=== PATIENT | female | born 1960 | race Caucasian/White ===

== ENCOUNTER 2016-09-24 10:11 | Emergency (ER) | payer MEDICARE, OTHER ==
[~2016-09-24] VITALS: Ht 162.6 cm; Wt 83.9 kg
[~2016-09-24 10:11] MED LIST: ADVAIR DISKUS 21 DSK IH; AMLODIPINE10 M1 PO; COZAAR25 MG PO; LISINOPRIL10 M1 PO; NORCO 10/325 MG1 TAB PO; PAXIL10 MG PO; PAXIL40 MG PO; VICODIN 5/500 M1 TAB PO
[2016-09-24 10:12] VITALS: BP 122/76
[2016-09-24] MEDS ORDERED: CYMBALTA60 MG PO (10:21)
--- NOTE | 2016-09-24 10:24 | NUR ---
Patient taken to bed 5.
--- NOTE | 2016-09-24 10:27 | NUR ---
Dr. Greco evaluating patient at bedside.
--- NOTE | 2016-09-24 10:35 | NUR ---
56/F presents to ED for evaluation of right sided head pain s/p fall from a chair x1 week ago. Pt states she went to sit on uneven chair and fell backwards. Denies loss of conciousness. Pt complains of right sided head pain, right neck and right shoulder pain, 10/10, pressure, constant. Patient states she went to see a doctor at an urgent care and was given Tylenol #3 with no improvement. Pt also complains of dizzness and vomiting this morning. Patient is AOX4, ambulatory with steady gait. VSS at this time. No visible signs of distress noted. Pt placed in position of comfort, bed in it's lowest position.
[2016-09-24] MEDS ORDERED: ONDANSETRON 4 MG/2 ML VIAL IVP ONE (10:40)
[2016-09-24] MEDS ORDERED: KETOROLAC 30 MG/ML VIAL IVP ONE (10:40)
[2016-09-24] MEDS ORDERED: NACL 0.9% 1,000 ML IV ONE (10:40)
--- NOTE | 2016-09-24 10:55 | NUR ---
Patient taken to CT via w/c accompanied by mechatronics technologistdarío Stearns.
--- NOTE | 2016-09-24 11:07 | NUR ---
Pt returned from CT and placed back into bed 5.
--- NOTE | 2016-09-24 11:13 | NUR ---
Patient provided with warm blanket and placed in position of comfort.
[2016-09-24] MEDS ORDERED: fentaNYL 0.05 MG/ML VIAL IVP ONE (11:35)
--- NOTE | 2016-09-24 11:36 | NUR ---
Pt continues to c/o 04/[address] Greco made aware.
--- NOTE | 2016-09-24 11:50 | NUR ---
Pt's boyfriend at bedside.
--- NOTE | 2016-09-24 12:09 | NUR ---
Dr. Greco re-evaluating patient at bedside.
--- NOTE | 2016-09-24 12:10 | NUR ---
Patient appears to be resting comfortably in bed. Vital Signs within normal limits. Respirations even and unlabored.
--- NOTE | 2016-09-24 12:18 | NUR ---
IV removed, catheter intact and site benign. Applied folded 4x4 gauze and tape to stop bleeding.
[2016-09-24 12:47] VITALS: BP 112/72
--- NOTE | 2016-09-24 12:48 | NUR ---
Patient discharged with v/s stable. Written and verbal after care instructions given and explained. Patient alert, oriented and verbalized understanding of instructions. Ambulatory with steady gait. All questions addressed prior to discharge. ID band removed. Patient advised to follow up with PMD. Rx of TRAMADOL AND MOTRIN given. Patient educated on indication of medication including possible reaction and side effects. Opportunity to ask questions provided and answered.
--- NOTE | 2016-09-24 12:49 | NUR ---
Chart checked and completed. The patient's care was reviewed and supervised by Jeancarlos Resendez RN.
--- NOTE | 2016-09-24 12:49 | NUR ---
Patient discharged with v/s stable. Written and verbal after care instructions given and explained. Patient alert, oriented and verbalized understanding of instructions. Ambulatory with steady gait. All questions addressed prior to discharge. ID band removed. Patient advised to follow up with PMD. Rx of MOTRIN, AND TRAMADOL given. Patient educated on indication of medication including possible reaction and side effects. Opportunity to ask questions provided and answered.
== END 2016-09-24 12:49 | disposition home or self-care (01) ==
LOC: MED 10:11
DX: S16.1XXA Strain of muscle, fascia and tendon at neck level, initial encounter (principal); S09.90XA Unspecified injury of head, initial encounter; J45.909 Unspecified asthma, uncomplicated; I10 Essential (primary) hypertension; W07.XXXA Fall from chair, initial encounter; Y93.89 Activity, other specified; Y92.89 Other specified places as the place of occurrence of the external cause; Y99.8 Other external cause status
CPT/HCPCS: 36415; 70450; 71010; 72125; 80053; 81002; 81025; 85025; 85610; 85730; 96361; 96374; 96375; 99285; J1885; J2405; J3010; J7030; Q0092

== ENCOUNTER 2017-08-16 00:26 | Emergency (ER) | payer MEDICARE, OTHER ==
[~2017-08-16] VITALS: Ht 162.6 cm; Wt 83.9 kg
[~2017-08-16 00:26] MED LIST changes: +ACET-787 PO; -ADVAIR DISKUS 21 DSK IH; -AMLODIPINE10 M1 PO; -COZAAR25 MG PO; +DULO60EC PO; +FLUT1DSK2 IH; -LISINOPRIL10 M1 PO; +LOSA25TA14 PO; -NORCO 10/325 MG1 TAB PO; -PAXIL10 MG PO; -PAXIL40 MG PO; -VICODIN 5/500 M1 TAB PO
[2017-08-16 00:33] VITALS: BP 132/81
[2017-08-16 01:13] LABS: HEMATOCRIT 40.9 % (36-48); HEMOGLOBIN 13.8 g/dL (12.0-16.0); MEAN CORPUSCULAR HEMOGLOBIN 31 pg (27-31); MEAN CORPUSCULAR HGB CONC 34 g/dL (33-37); MEAN CORPUSCULAR VOLUME 92 fL (80-94); PLATELET COUNT (AUTO) 404 K/uL (140-450); RED BLOOD CELL COUNT(AUTO) 4.45 MIL/uL (4.20-5.40); RED CELL DISTRIBUTION WIDTH 12.7 % (11.6-13.7); WHITE BLOOD COUNT (AUTO) 12.1 K/uL (4.8-10.8)
[2017-08-16 01:13] LABS: APPEARANCE,URINE CLEAR (CLEAR); BILIRUBIN,URINE NEGATIVE (NEGATIVE); BLOOD, URINE 3+ (NEGATIVE); COLOR,URINE YELLOW (YELLOW); LEUKOCYTE ESTERASE ,URINE NEGATIVE (NEGATIVE); NITRITE, URINE NEGATIVE (NEGATIVE); UGLUCOSE NEGATIVE (NEGATIVE)
[2017-08-16 01:28] LABS: EOSINOPHILS % (MANUAL) 1 % (0-4); LYMPHOCYTES % (MANUAL) 13 % (20-46); MONOCYTES % (MANUAL) 8 % (5-12)
[2017-08-16 01:29] LABS: RBC,URINE 3-10 (FEW) /HPF (0-5); WBC,URINE 0-5 (RARE) /HPF (0-5)
[2017-08-16 01:30] LABS: ALBUMIN 4.2 g/dL (3.4-5.0); ANION GAP 9.7 (8-16); CREATININE 0.8 mg/dL (0.6-1.3); POTASSIUM 3.7 mmol/L (3.5-5.1); TOTAL BILIRUBIN 0.8 mg/dL (0.0-1.0)
[2017-08-16] MEDS ORDERED: NACL 0.9% 1,000 ML IV ONE (02:20)
[2017-08-16] MEDS ORDERED: KETOROLAC 30 MG/ML VIAL IVP ONE (02:30)
[2017-08-16 03:42] VITALS: BP 118/76
== END 2017-08-16 03:42 | disposition home or self-care (01) ==
LOC: MED 00:26
DX: N20.0 Calculus of kidney (principal); J45.909 Unspecified asthma, uncomplicated; I10 Essential (primary) hypertension; Z90.89 Acquired absence of other organs; Z79.899 Other long term (current) drug therapy; Z91.010 Allergy to peanuts
CPT/HCPCS: 36415; 74176; 80053; 81001; 83690; 85025; 96361; 96374; 99285; J1885; J7030